=== PATIENT | female | born 1970 | race Caucasian/White ===

== ENCOUNTER 2023-09-12 11:32 | Emergency (ER) | payer MEDICAID ==
[~2023-09-12] VITALS: Ht 157.5 cm; Wt 44.1 kg
[2023-09-12 14:36] LABS: BILIRUBIN,URINE NEGATIVE (Neg); CLARITY,URINE CLEAR (Clear); COLOR,URINE YELLOW (Yellow); GLUCOSE, URINE NEGATIVE (Neg); KETONES,URINE NEGATIVE (Neg); LEUKOCYTE ESTERASE ,URINE NEGATIVE (Neg); NITRITES, URINE NEGATIVE (Neg); OCCULT BLOOD,URINE NEGATIVE (Neg); PROTEIN,URINE NEGATIVE (Neg); UROBILINOGEN,URINE 0.2 E.U/dL (0.2-1.0)
[2023-09-12 14:37] LABS: UA COLLECTION TYPE CLN CATCH MIDSTREAM
[2023-09-12] MEDS: LIDOcaine 2% Viscous 15ml cup MM PRN (14:54)
[2023-09-12] MEDS: dicyclomine 10 MG capsule PO ONE (14:54)
[2023-09-12] MEDS: mag hydrox/Alum hydrox/simeth 30ml oral suspension PO ONE (14:54)
[2023-09-12 15:42] LABS: EOSINOPHILS # (AUTO) 0.1 X10'3 (0-0.9); HEMATOCRIT 40.6 % (35.0-45.0); LYMPHOCYTES # (AUTO) 1.1 X10'3 (1.1-4.8); NEUTROPHILS # (AUTO) 2.4 X10'3 (1.8-7.7)
[2023-09-12 15:45] LABS: BASOPHILS % (AUTO) 0.7 % (0-1); EOSINOPHILS % (AUTO) 1.7 % (0-6); HEMOGLOBIN 13.6 g/dl (12.0-16.0); LYMPHOCYTES % (AUTO) 28.7 % (21-51); MEAN CORPUSCULAR HEMOGLOBIN 29.2 PG (27.0-31.0); MEAN CORPUSCULAR HGB CONC 33.6 g/dL (33.0-36.5); MEAN CORPUSCULAR VOLUME 86.9 FL (78-98); MEAN PLATELET VOLUME 9.6 FL (7.4-10.4); MONOCYTES # (AUTO) 0.2 X10'3 (0-0.9); MONOCYTES % (AUTO) 6.4 % (2-12); NEUTROPHILS % (AUTO) 62.5 % (42-75); PLATELET COUNT 219 X10'3 (140-440); RED BLOOD COUNT 4.67 X10'6 (4.20-5.60); RED CELL DISTRIBUTION WIDTH 12.8 % (11.5-14.5); WHITE BLOOD COUNT 3.8 X10'3 (4.5-11.0)
[2023-09-12 15:53] LABS: ALANINE AMINOTRANSFERASE 31 U/L (12-78); ALBUMIN 4.1 G/DL (3.4-5.0); ALKALINE PHOSPHATASE 106 IU/L (46-116); ANION GAP 9 (8-16); ASPARTATE AMINO TRANSFERASE 24 U/L (10-37); BILIRUBIN,TOTAL 0.4 MG/DL (0.1-1.0); BLOOD UREA NITROGEN 10 MG/DL (7-18); BUN/CREATININE RATIO 16.4 (10.0-20.0); CALCIUM 9.4 MG/DL (8.5-10.1); CHLORIDE 101 MMOL/L (99-107); CREATININE 0.61 MG/DL (0.40-0.90); GLUCOSE 89 MG/DL (70-104); LIPASE 51 U/L (16-77); POTASSIUM 3.6 MMOL/L (3.5-5.1); SODIUM 139 MMOL/L (135-145); TOTAL PROTEIN 8.1 G/DL (6.4-8.2); eCRCL 75 ML/MIN; eGFR > 90 ML/MIN
[2023-09-12] MEDS ORDERED: DICY20TA17 PO (16:13)
[2023-09-12] MEDS ORDERED: OMEP40CA21 PO (16:14)
[2023-09-12 16:40] VITALS: BP 117/69; PULSE 69; RESP 16; O2SAT 99
[2023-09-12 16:49] VITALS: TEMP 98.6
== END 2023-09-12 17:00 | disposition home or self-care (01) ==
LOC: ER 11:33
DX: R10.13 Epigastric pain (principal)
CPT/HCPCS: 36415; 76700; 80053; 81003; 83690; 84484; 85025; 93005; 99284